=== PATIENT | female | born 1985 | race Caucasian/White ===

== ENCOUNTER → 2016-11-02 | Outpatient (CLI) | payer MEDICAID ==
--- NOTE | 2016-11-05 08:40 | USB ---
Reason for exam: additional evaluation requested from abnormal screening. History: Taking hormonal contraceptives for 1 year beginning at age 20. Indicated problem(s): other indicated problem in the right breast. Physical Findings: Nurse Summary: Discoloration bilateral breasts and itching times 2 years (nurse dw). US Breast LT Left breast ultrasound includes all four quadrants, the retroareolar region and axilla. Finding demonstrate a 0.7 x 0.7 x 0.3cm oval, solid, hypoechoic lesion at 4 o'clock, a 0.6 x 0.5 x 0.2cm oval, solid, hypoechoic at 10 o'clock, and a 0.9 x 0.6 x 0.4cm solid, hypoechoic lesion at 11 o'clock. These results were verbally communicated with the patient and result sheet given to the patient on 11/02/16. ASSESSMENT: Probably benign, BI-RAD 3 RECOMMENDATION: Ultrasound of the left breast in 6 months. Manage patient on a clinical basis.
== END | disposition home or self-care (01) ==
LOC: RADUSWWP 15:49
PROVIDERS: ATTEND Family Medicine
DX: N64.59 Other signs and symptoms in breast (principal)